=== PATIENT | male | born 1995 | race Caucasian/White ===

== ENCOUNTER 2019-01-04 13:13 | Emergency (ER) | payer BC ==
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
[2019-01-04] MEDS ORDERED: Zofran 4 MG/2 ML VIAL IV ONE (13:51)
[2019-01-04] MEDS ORDERED: Sodium Chloride 0.9% 1000 ML 1,000 ML IV STA (13:51)
[2019-01-04] MEDS ORDERED: Sodium Chloride 0.9% 1000 ML 1,000 ML ONE (14:10)
[2019-01-04] MEDS ORDERED: Zofran 4 MG/2 ML VIAL ONE (14:10)
[2019-01-04 14:14] LABS: BASOPHIL % 0.3 % (0.0-0.4); Basophil (Absolute #) 0.03 (0-0.4); Eosinophil % 2.5 % (0.00-5.0); Eosinophil (Absolute #) 0.23 (0-0.5); Granulocyte Absolute (ANC) 6.75 (1.4-6.9); Granulocytes % 72.2 % (36.0-66.0); Hematocrit 45.8 % (42-50); Hemoglobin 15.8 gm/dl (12.5-18.0); Lymphocyte (Absolute #) 1.55 (1.0-4.6); Lymphocytes % 16.6 % (24.0-44.0); Mean Cell Volume 92.5 fl (78-100); Mean Corpuscular Hemoglobin 31.9 pg (26-32); Mean Corpuscular Hgb Concent. 34.5 g/dl (32-36); Mean Platelet Volume 10.1 fl (6-9.5); Monocyte (Absolute #) 0.78 (0.0-1.3); Monocytes % 8.4 % (0.0-12.0); Platelet Count 324 K/mm3 (150-450); Red Blood Count 4.95 M/mm3 (4.1-5.6); Red Cell Distribution Width 12.5 % (11.5-14.0); White Blood Count 9.3 K/mm3 (4.0-10.5)
[2019-01-04 14:20] LABS: ALBUMIN 4.8 g/dL (3.5-5.0); ALKALINE PHOSPHATASE 78 U/L (38-126); ANION GAP 15.7 MEQ/L (5-15); BLOOD UREA NITROGEN 12 mg/dL (9-20); CHLORIDE 105 mmol/L (98-107); Calcium 9.6 mg/dL (8.4-10.2); Carbon Dioxide 25 mmol/L (22-30); Creatinine 1 0.84 mg/dL (0.66-1.25); Glucose 86 mg/dL (74-106); Potassium 3.7 mmol/L (3.5-5.1); SGOT/AST 24 U/L (17-59); SGPT/ALT 28 U/L (0-50); SODIUM 142 mmol/L (137-145); Total Protein 8.2 g/dL (6.3-8.2)
[2019-01-04 14:28] LABS: ETHYL ALCOHOL < 10 mg/dL (0-10)
[2019-01-04 14:44] LABS: Appearance CLEAR (CLEAR); Bilirubin NEGATIVE (NEGATIVE); Blood NEGATIVE Ery/ul (0-5); Glucose NEGATIVE (NEGATIVE); Ketones NEGATIVE (NEGATIVE); Leukocyte Esterase NEGATIVE (NEGATIVE); Nitrite NEGATIVE (NEGATIVE); Protein,Urine Dip NEGATIVE (Negative); Specific Gravity 1.001 (1.005-1.025); Urobilinogen NEGATIVE mg/dL (0-1)
[2019-01-04 14:45] LABS: Fatty Casts,Urine N /LPF (NEGATIVE)
--- NOTE | 2019-01-04 14:56 | XRAY ---
Indication: Blurred vision, unsteady gait, and weakness. Multiple contiguous axial images obtained through the head without contrast. Comparison: None Normal appearing brain parenchyma, ventricles, and bony calvarium. Visualized paranasal sinuses and mastoid air cells are clear. Impression: Normal CT head without contrast exam. CTDI 70.69
[2019-01-04 14:58] LABS: Amphetamine,Urine NEGATIVE (NEGATIVE); Barbiturate,Urine NEGATIVE (NEGATIVE); Benzodiazepine,Urine NEGATIVE (NEGATIVE); Cocaine,Urine NEGATIVE (NEGATIVE); Methadone,Urine NEGATIVE (NEGATIVE); Opiate,Urine NEGATIVE (NEGATIVE); PCP,Urine NEGATIVE (NEGATIVE); THC,Urine NEGATIVE (NEGATIVE)
[2019-01-04 15:20] VITALS: BP 130/68; PULSE 71; O2SAT 100
== END 2019-01-04 15:34 | disposition home or self-care (01) ==
LOC: ED 13:13
DX: H53.8 Other visual disturbances (principal); R53.1 Weakness
CPT/HCPCS: 36000; 36415; 70450; 80053; 80307; 81001; 82962; 85025; 96360; 96374; 99284; J2405; G0480

== ENCOUNTER 2019-10-08 05:06 | Emergency (ER) | payer BC ==
--- NOTE | 2019-10-08 05:25 | ERPHSYRPT ---
- History of Present Illness Time Seen by Provider: 10/08/19 05:25 Source: patient Patient Subjective Stated Complaint: pt states he has been vomiting since 2230 last night and has been having intermittent sharp upper abd pain Triage Nursing Assessment: pt alert and oriented, answers questions approp. pt ambulatory with steady gait noted. respirations onlabored with lungs cta. skin pibnk warm and dry. abd soft and nontender to light palpation. bowel sounds present x4 Physician History: Pt notes that he began to be nasuseated and vomited stsarting last night at 22: 00 and did about 4 times. Then pt went to be. Pt got up this morning to take a shower and et ready for work and became nauseated again in the shower. Pt then became nauseated in the shower and had to get out. The next thing he knew he was getting up off of the bathroom floor. The pt states that the back of his head hurts like he fell on it. Pt isn't sure how long he was out. Timing/Duration: hour(s) Associated Symptoms: nausea, vomiting, abdominal pain, cough, syncope, No shortness of breath Allergies/Adverse Reactions: morphine Allergy (Verified 10/08/19 05:22) Hx Tetanus, Diphtheria Vaccination/Date Given: No Hx Influenza Vaccination/Date Given: No Hx Pneumococcal Vaccination/Date Given: No Immunizations Up to Date: No - Review of Systems Constitutional: Malaise Eyes: No Symptoms Ears, Nose, & Throat: No Symptoms Respiratory: No Symptoms Cardiac: No Symptoms Abdominal/Gastrointestinal: Abdominal Pain, Nausea, Vomiting Genitourinary Symptoms: No Symptoms Musculoskeletal: Joint Redness, Myalgias Skin: No Symptoms Neurological: No Symptoms Psychological: No Symptoms Endocrine: No Symptoms Hematologic/Lymphatic: No Symptoms Immunological/Allergic: No Symptoms All Other Systems: Reviewed and Negative - Past Medical History Pertinent Past Medical History: Yes Neurological History: No Pertinent History ENT History: No Pertinent History Cardiac History: No Pertinent History Respiratory History: No Pertinent History Endocrine Medical History: No Pertinent History Musculoskeletal History: No Pertinent History GI Medical History: No Pertinent History History: No Pertinent History Psycho-Social History: No Pertinent History Male Reproductive Disorders: No Pertinent History Other Medical History: self diagnosed hypoglycemia - Past Surgical History Past Surgical History: No Neuro Surgical History: No Pertinent History Cardiac: No Pertinent History Respiratory: No Pertinent History Gastrointestinal: Cholecystectomy Genitourinary: No Pertinent History Musculoskeletal: No Pertinent History Male Surgical History: No Pertinent History Other Surgical History: tubes in ears - Social History Smoking Status: Never smoker Exposure to second hand smoke: No Drug Use: none Patient Lives Alone: Yes - Nursing Vital Signs Nursing Vital Signs: Initial Vital Signs Temperature 98.3 F 10/08/19 05:13 Pulse Rate 78 10/08/19 05:13 Respiratory Rate 18 10/08/19 05:13 Blood Pressure 128/82 10/08/19 05:13 O2 Sat by Pulse Oximetry 96 10/08/19 05:13 Pain Scale Pain Intensity 0 - Physical Exam General Appearance: no apparent distress Eye Exam: PERRL/EOMI, eyes nml inspection, No photophobia, No EOM palsy/ anisocoria Ears, Nose, Throat Exam: normal ENT inspection, TMs normal, dry mucous membranes , No pharyngeal erythema Neck Exam: normal inspection, non-tender, supple, No meningismus, No mass Respiratory Exam: normal breath sounds, No chest tenderness Cardiovascular Exam: regular rate/rhythm, normal heart sounds, normal peripheral pulses, No murmur, No friction rub Gastrointestinal/Abdomen Exam: soft, normal bowel sounds, tenderness ( midepigastric region) Rectal Exam: not done Back Exam: normal inspection Extremity Exam: normal inspection, normal range of motion, pelvis stable, No parasthesia SpO2: 96 - Course Nursing assessment & vital signs reviewed: Yes Ordered Tests: Active Orders 24 hr Category Date Time Status HEAD WITHOUT CONTRAST [CT] Stat Exams 10/08/19 05:35 Taken CBC W DIFF Stat Lab 10/08/19 05:50 Completed CMP Stat Lab 10/08/19 05:50 Completed ETHYL ALCOHOL Stat Lab 10/08/19 05:50 Completed Medication Summary Discontinued Medications Generic Name Dose Route Start Last Admin Trade Name Freq PRN Reason Stop Dose Admin Sodium Chloride 1,000 mls @ 999 mls/hr 10/08/19 05:34 10/08/19 07:24 Sodium Chloride 0.9% 1000 Ml IV 10/08/19 06:34 Infused .Q1H1M STA Infusion Sodium Chloride Confirm 10/08/19 06:01 Sodium Chloride 0.9% 1000 Ml Administered 10/08/19 06:02 Dose 1,000 mls @ ud .ROUTE .STK-MED ONE Ondansetron HCl 4 mg 10/08/19 05:36 10/08/19 06:03 Zofran 4 Mg/2 Ml Vial IV 10/08/19 05:37 4 mg STAT ONE Administration Ondansetron HCl Confirm 10/08/19 06:01 Zofran 4 Mg/2 Ml Vial Administered 10/08/19 06:02 Dose 4 mg .ROUTE .STK-MED ONE Prochlorperazine Edisylate 10 mg 10/08/19 06:54 10/08/19 07:00 Compazine 10 Mg/2 Ml IV 10/08/19 06:55 10 mg STAT ONE Administration Prochlorperazine Edisylate Confirm 10/08/19 06:59 Compazine 10 Mg/2 Ml Administered 10/08/19 07:00 Dose 10 mg .ROUTE .STK-MED ONE Prochlorperazine Edisylate Confirm 10/08/19 07:17 Compazine 10 Mg/2 Ml Administered 10/08/19 07:18 Dose 10 mg .ROUTE .STK-MED ONE Lab/Rad Data: Laboratory Result Diagrams 10/08/19 05:50 10/08/19 05:50 Laboratory Results 10/08/19 10/08/19 10/08/19 Range/Units 05:50 05:50 05:50 WBC 10.9 H (4.0-10.5) K/mm3 RBC 5.20 (4.1-5.6) M/mm3 Hgb 16.6 (12.5-18.0) gm/dl Hct 49.4 (42-50) % MCV 95.0 (78-100) fl MCH 31.9 (26-32) pg MCHC 33.6 (32-36) g/dl RDW 12.5 (11.5-14.0) % Plt Count 303 (150-450) K/mm3 MPV 10.0 H (6-9.5) fl Gran % 72.3 H (36.0-66.0) % Eos # (Auto) 0.56 H (0-0.5) Absolute Lymphs (auto) 1.54 (1.0-4.6) Absolute Monos (auto) 0.89 (0.0-1.3) Lymphocytes % 14.2 L (24.0-44.0) % Monocytes % 8.2 (0.0-12.0) % Eosinophils % 5.1 H (0.00-5.0) % Basophils % 0.2 (0.0-0.4) % Absolute Granulocytes 7.87 H (1.4-6.9) Basophils # 0.02 (0-0.4) Sodium 142 (137-145) mmol/L Potassium 4.7 (3.5-5.1) mmol/L Chloride 102 (98-107) mmol/L Carbon Dioxide 31 H (22-30) mmol/L Anion Gap 12.9 (5-15) MEQ/L BUN 16 (9-20) mg/dL Creatinine 0.91 (0.66-1.25) mg/dL Estimated GFR > 60.0 ML/MIN Glucose 103 (74-106) mg/dL Calcium 9.6 (8.4-10.2) mg/dL Total Bilirubin 1.90 H (0.2-1.3) mg/dL AST 31 (17-59) U/L ALT 57 H (0-50) U/L Alkaline Phosphatase 56 (38-126) U/L Serum Total Protein 7.9 (6.3-8.2) g/dL Albumin 4.7 (3.5-5.0) g/dL Ethyl Alcohol < 10 (0-10) mg/dL Influenza Type A Ag NEGATIVE (NEGATIVE) Influenza Type B Ag NEGATIVE (NEGATIVE) RSV (PCR) NEGATIVE (Negative) - Progress Progress: improved Progress Note: 10/08/19 08:15 Pt is feeling better after IV NS and zofran. Pt still a little "queasy" so I gave additionaly antiemetic - Compazine. Reviewed labs and pt was negative for flu. WBC count minimally elevated. Pt had pain after eating and has elevated T. Bili but has already had a cholecystectomy. - Departure Departure Disposition: Home Clinical Impression: Vomiting, Contusion of head Condition: Stable Critical Care Time: No Referrals: DOCTOR,NO FAMILY [Primary Care Provider] - Instructions: Nausea -- Adult, Vomiting -- Adult Additional Instructions: You may try to start with sips of clear, non-caffienated liquids every 5-10 minutes for 2 or 3 times then try 1 ounce and wait 10-15 minutes. if you can do that without vomiting then you may sip freely. Then the next 24 hours you may add Bananas, Rice, Applesauce, or toast. I recommend that you start with Rice. When you can tolerate these foods you may advance to other foods as tolerated. If you aren't better in 3-5 days then see your primary care doctor or return to the ER with emergent medical problems. Prescriptions: Promethazine HCl 25 mg [Phenergan 25 mg] 25 mg PO Q8H PRN PRN #10 tablet PRN Reason: Nausea
[2019-10-08] MEDS ORDERED: Sodium Chloride 0.9% 1000 ML 1,000 ML IV STA (05:34)
[2019-10-08] MEDS ORDERED: Zofran 4 MG/2 ML VIAL IV ONE (05:36)
[2019-10-08 05:51] LABS: Absolute Neutrophil Ct (ANC) 7.87 (1.4-6.9); BASOPHIL % 0.2 % (0.0-0.4); Basophil (Absolute #) 0.02 (0-0.4); Eosinophil % 5.1 % (0.00-5.0); Eosinophil (Absolute #) 0.56 (0-0.5); Hematocrit 49.4 % (42-50); Hemoglobin 16.6 gm/dl (12.5-18.0); Lymphocyte (Absolute #) 1.54 (1.0-4.6); Lymphocytes % 14.2 % (24.0-44.0); Mean Corpuscular Hemoglobin 31.9 pg (26-32); Mean Corpuscular Hgb Concent. 33.6 g/dl (32-36); Monocyte (Absolute #) 0.89 (0.0-1.3); Monocytes % 8.2 % (0.0-12.0); Neutrophil % 72.3 % (36.0-66.0); Platelet Count 303 K/mm3 (150-450); Red Cell Distribution Width 12.5 % (11.5-14.0); White Blood Count 10.9 K/mm3 (4.0-10.5)
[2019-10-08] MEDS ORDERED: Sodium Chloride 0.9% 1000 ML 1,000 ML ONE (06:01)
[2019-10-08] MEDS ORDERED: Zofran 4 MG/2 ML VIAL ONE (06:01)
[2019-10-08 06:02] LABS: ALBUMIN 4.7 g/dL (3.5-5.0); ALKALINE PHOSPHATASE 56 U/L (38-126); ANION GAP 12.9 MEQ/L (5-15); BLOOD UREA NITROGEN 16 mg/dL (9-20); CHLORIDE 102 mmol/L (98-107); Calcium 9.6 mg/dL (8.4-10.2); Carbon Dioxide 31 mmol/L (22-30); Creatinine 1 0.91 mg/dL (0.66-1.25); Glucose 103 mg/dL (74-106); Potassium 4.7 mmol/L (3.5-5.1); SGOT/AST 31 U/L (17-59); SGPT/ALT 57 U/L (0-50); SODIUM 142 mmol/L (137-145); Total Protein 7.9 g/dL (6.3-8.2)
[2019-10-08 06:08] LABS: ETHYL ALCOHOL < 10 mg/dL (0-10)
[2019-10-08 06:38] LABS: INFLUENZA A NEGATIVE (NEGATIVE); INFLUENZA B NEGATIVE (NEGATIVE); RESPIRATORY SYNCTIAL VIRUS NEGATIVE (Negative)
[2019-10-08] MEDS ORDERED: Compazine 10 MG/2 ML IV ONE (06:54)
[2019-10-08] MEDS ORDERED: Compazine 10 MG/2 ML ONE ×2 (06:59→07:17)
[2019-10-08 07:10] VITALS: BP 119/64
[2019-10-08 07:29] VITALS: PULSE 97
[2019-10-08 08:18] VITALS: O2SAT 96
--- NOTE | 2019-10-08 09:03 | XRAY ---
Indication: Head injury following syncopal fall. Multiple contiguous axial images obtained through the head without contrast. Comparison: January 04, 2019. Again normal appearing brain parenchyma, ventricles, and bony calvarium. Visualized paranasal sinuses and mastoid air cells are clear. Impression: Stable normal CT head without contrast exam. Comment: Preliminary interpretation was made by [facility]. No critical discrepancy. CT DI 55.94
== END 2019-10-08 07:54 | disposition home or self-care (01) ==
LOC: ED 05:06
DX: R11.10 Vomiting, unspecified (principal); T14.8XXA Other injury of unspecified body region, initial encounter; R10.10 Upper abdominal pain, unspecified
CPT/HCPCS: 36415; 70450; 80053; 80307; 85025; 87631; 96360; 96374; 96375; 99284; J2405; G0480